=== PATIENT | male | born 1960 | race Caucasian/White ===

== ENCOUNTER 2025-07-05 07:58 | Day surgery (SDC) | payer BC ==
[2025-07-05] MEDS ORDERED: Sodium Chloride 0.9(Preservative Free) 10 ML IJ ONE (07:59)
[2025-07-05] MEDS ORDERED: propofoL IV ONE (10:24)
[2025-07-05] MEDS ORDERED: Lactated Ringers 1,000 ML IV ONE (11:05)
--- NOTE | 2025-07-05 13:06 | XRAY ---
Indication: Right L4-S1 transforaminal ELO. Intraoperative fluoroscopy provided for 45 seconds. 3 digital spot images submitted for interpretation demonstrates posterior needle tips projecting over expected right L4 and L5 nerve roots. Small amount of contrast injected for needle tip placement. Correlate with intraoperative findings/report.
--- NOTE | 2025-07-05 14:00 | XRAY ---
45 seconds of fluoroscopy was used in surgery for a right L4-S1 transforaminal ELO.
== END 2025-07-05 10:56 | disposition home or self-care (01) ==
LOC: SDC-PAIN 07:58
PROVIDERS: ATTEND Psychiatry & Neurology Pain Medicine
DX: M54.16 Radiculopathy, lumbar region (principal); E11.9 Type 2 diabetes mellitus without complications